=== PATIENT | male | born 1945 | race Caucasian/White ===

== ENCOUNTER 2018-10-07 13:04 | Inpatient (IN) | payer OTHER, MEDICARE ==
[2018-10-07] MEDS ORDERED: Digoxin 0.125 MG TAB ONE (13:25)
[2018-10-07] MEDS ORDERED: Digoxin 0.5 MG/2 ML AMP SLOW IVP SCH (13:45)
[2018-10-07 14:38] LABS: CKMB 9.8 ng/mL (0-6.6)
[2018-10-07] MEDS ORDERED: Digoxin 0.5 MG/2 ML AMP ONE (15:01)
[2018-10-07] MEDS ORDERED: Acetaminophen 325 MG TAB PO PRN (15:57)
[2018-10-07] MEDS ORDERED: Ondansetron ODT 4 MG TAB PO PRN (15:57)
[2018-10-07] MEDS ORDERED: Nitroglycerin 0.4 MG TAB (25 Tab Bottle) SL PRN (15:57)
[2018-10-07] MEDS ORDERED: Zolpidem Tartrate 5 MG TAB PO PRN (15:57)
[2018-10-07] MEDS ORDERED: Aspirin Chewable 81 MG TAB PO SCH (16:00)
--- NOTE | 2018-10-07 16:34 | CON ---
DATE OF CONSULTATION: REASON FOR CONSULTATION: Atrial flutter/fibrillation and elevated troponin. [employer]IMARY [employer] TEACHER: Dr. Armen Corona. HISTORY OF PRESENT ILLNESS: Mr. Shell is a very pleasant 73-year-old gentleman, who recently presented with tachycardia. He states his heart rate was in the 130s to 140s. He does have chronic angina and has been treated medically. His also states he has moderate to severe aortic stenosis. He has a history of CAD, status post bypass surgery with small vessel disease, not amenable to percutaneous intervention per Dr. Armen Corona, which I have confirmed after reviewing his angio in 2017. No significant episodes of shortness of breath, fever, chills, or associated symptoms. PAST MEDICAL HISTORY: Cardiac arrest, status post bypass surgery, COPD, acid reflux, moderate to severe aortic stenosis, hyperlipidemia, hypertension, colonic polyp, carpal tunnel surgery, and inguinal hernia repair. ALLERGIES: PERIACTIN. HOME MEDICATIONS: Include: 1. Prilosec. 2. DuoNeb. 3. Lotrel. 4. Imdur. 5. Carvedilol. 6. Lovastatin. 7. Aspirin. 8. Albuterol. SOCIAL HISTORY: No current tobacco or alcohol use. REVIEW OF SYSTEMS: A 10-point review of systems is reviewed and as above otherwise negative. PHYSICAL EXAMINATION: GENERAL: Patient is a pleasant male, who is in no acute distress. The patient appears their stated age. VITAL SIGNS: Blood pressure 99/70, pulse 130s to 140s, respirations 20. NEUROLOGIC: The patient is alert and oriented x3 with no focal neurologic deficits. HEENT: Sclerae without icterus. Mouth has moist mucous membranes with normal pallor. NECK: No JVD. Carotid upstroke brisk. No bruits bilaterally. LUNGS: Clear to auscultation with unlabored respirations. BACK: No scoliosis or kyphosis. CARDIAC: Irregularly irregular. ABDOMEN: Soft, nontender, nondistended. No peritoneal signs present. No hepatosplenomegaly. No abnormal striae. EXTREMITIES: 2+ femoral and 2+ dorsalis pedis pulses. No cyanosis, clubbing, or edema. SKIN: No gross abnormalities. PERTINENT LABORATORY DATA: Hemoglobin 13.8, hematocrit 41.6. CK-MB of 9.8. Troponin 3.1. BNP of 347. IMPRESSION: 1. Atrial flutter/fibrillation. 2. Coronary artery disease. 3. Status post bypass surgery. 4. Moderate to severe aortic stenosis. 5. Elevated troponin. RECOMMENDATIONS: Mr. Shell has no current symptoms suggesting unstable angina. Based on his previous films which I have reviewed, he likely has a demand ischemia given small-vessel disease present. His grafts appear large and ectatic and bypassed a small vessel. The goal currently is to control his rate. He has been given IV digoxin. We will give IV fluids in addition to repeating his echo. He was given one dose of Lovenox and placed on IV amiodarone. We will consult with EP in a.m. Job ID: [id number]
[2018-10-07 16:55] VITALS: BMI 33.5
[2018-10-07 17:25] LABS: Critical Call Chem Troponin I RESULT DECREASING; Troponin I 2.588 ng/mL (< 0.028)
--- NOTE | 2018-10-07 17:25 | HP ---
PRIMARY CARE PHYSICIAN: Dr. Cisneros. HISTORY OF PRESENT ILLNESS: The patient lives at [place]. The patient went to the emergency room with palpitations. He has noticed that his heart felt fast. He had checked his pulse, found it to be about 150. He had some mild shortness of breath with exertion. He had a sweat last night with present illness. No nausea and definitely no chest pain whatsoever. No pressure, no tightness, no nothing. PAST MEDICAL HISTORY: Coronary artery disease with coronary artery bypass graft x4 in 1991, heart catheterization in 2000, heart catheterization in December of 2016 , has a history of COPD. 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 Gastroesophageal reflux disease, hiatal hernia. Echocardiogram had recently shown an EF of 38%. History of colon polyps. Former smoker. PAST SURGICAL HISTORY: In addition to his coronary artery bypass graft, he has had a colonoscopy and EGD in the last 5 years, carpal tunnel surgery, inguinal hernia surgery, laryngeal polyps surgery in the 1980s, lumbar laminectomy x2 in the past. ALLERGIES: HE IS ALLERGIC TO PERIACTIN. CURRENT HOME MEDICINES: 1. Imdur 30 mg a day. 2. Coreg 6.25 mg twice a day. 3. Singulair 10 mg a day. 4. Lovastatin 40 mg a day. 5. Aspirin 81 mg a day. 6. Losartan 25 mg a day. 7. Lasix 20 mg p.r.n. 8. Protonix 40 mg a day. 9. Some p.r.n. medicines. 10. Stiolto inhaler, started in August 2017. 11. DuoNebs 3 mL q.6 hours p.r.n. 12. Budesonide 0.5 mg nebulizer b.i.d. SOCIAL HISTORY: Lives at home with his spouse. Full code status. Seventy-five pack-year smoking history. No alcohol or drug use. FAMILY HISTORY: Brother and father with lung cancer. One brother with prostate cancer. Sister with breast cancer metastases. REVIEW OF SYSTEMS: HEAD: No headaches, dizziness, or fainting EYES: No double vision, blurred vision, or flashing lights. EAR, NOSE, AND THROAT: No ear pain or drainage. No nasal bleeding. He has been a little hoarse lately. CARDIAC: See present illness. RESPIRATIONS: He has crackles, some occasional wheezing. GI: No nausea, vomiting, abdominal pain, or constipation. : No hematuria or dysuria. MUSCULOSKELETAL: No pain or swelling. NEUROLOGICAL: No strokes, seizures, or focal weakness. PSYCHIATRIC: No anxiety or depression. SKIN: No bruising, bleeding or rash. HEME AND LYMPH: No tender or swollen lymph nodes in axilla, inguinal, cervical area. PHYSICAL EXAMINATION: GENERAL: The patient is alert, pleasant, cooperative gentleman, in no acute distress. VITAL SIGNS: His pulse was 150 with occasional missed beats. Respirations were 16 to 18, blood pressure 100/60, O2 saturation 95%, afebrile. HEAD EYES, EARS, NOSE, AND THROAT: Pupils are equal, round, and reactive to light. Extraocular movements intact. Sclerae are white. Tympanic membranes clear. Nose is clear. Oral mucous membranes are wet. Dental hygiene is good. NECK: No jugular venous distention, adenopathy, or thyromegaly. CHEST: Clear to auscultation and percussion. HEART: Basically regular rhythm with some irregularities. Tachycardic. No murmurs or gallops noted. ABDOMEN: Soft. Bowel sounds are normal. No hepatosplenomegaly. No mass. No rebound. No bruits. EXTREMITIES: Reveal no cyanosis, clubbing, or edema. PULSES: Carotid, radial, femoral, and dorsalis pedis pulses intact. SKIN: Warm and dry without bruises or rash. HEME/LYMPH: No tender or swollen lymph nodes in the axilla, inguinal, or cervical area. NEUROLOGICAL: Cranial nerves 2 through 12 are intact. Deep tendon reflexes symmetric. LABORATORY DATA: The only lab available here is CK-MB of 9.8, troponin 3.197. EKG reveals atrial flutter with variable block, running as fast as 150 for prolonged periods of times. ADMITTING DIAGNOSES: Atrial flutter with 2:1 block, [id number] myocardial infarction versus demand ischemia, coronary artery disease, chronic obstructive pulmonary disease, dyslipidemia, and cardiomyopathy. PLAN: I have discussed this case with Dr. Hancock. Aspirin has been given. Lovenox has been started 1 mg/kg subcu q.12 hours. Amiodarone IV infusion will be started. Serial enzymes will be done. Home medicines will be continued as far his pulmonary problem, etc. Because of the elevation of his enzymes and rate, he will be moved to the [facility]. Job ID: [id number] ERIKA
[2018-10-07] MEDS: Lovastatin 20 MG TAB PO SCH (18:00)
[2018-10-07] MEDS: Amiodarone 450 MG in Dextrose 5% in Water 250 ML IVPB SCH (18:01)
[2018-10-07 21:08] LABS: Troponin I 2.945 ng/mL (< 0.028)
[2018-10-07] MEDS: Enoxaparin Sodium 120 MG/0.8 ML SYRINGE SC SCH (21:11)
[2018-10-07] MEDS: Carvedilol 6.25 MG TAB PO SCH (21:11)
[2018-10-07] MEDS: Montelukast Sodium 10 mg Tablet PO SCH (21:12)
[2018-10-07] MEDS: Nitroglycerin 2% Ointment 1 INCH/1 GM Packet TOP SCH (21:12)
[2018-10-07] MEDS: Famotidine/PF 20 mg/2ml Vial SLOW IVP SCH (21:12)
[2018-10-08] MEDS: Amiodarone 450 MG in Dextrose 5% in Water 250 ML IVPB SCH ×2 (01:37→18:37)
[2018-10-08] MEDS: Nitroglycerin 2% Ointment 1 INCH/1 GM Packet TOP SCH ×4 (02:00→22:51)
[2018-10-08 05:05] LABS: #Eosinphils 0.1 thou/uL (0.0-0.7); #Neutrophils 8.8 thou/uL (1.40-6.50); %Basophils 0.1 % (0.0-1.0); %Eosinophils 0.7 % (0.0-10.0); %Lymphocytes 16.5 % (21.0-51.0); %Monocytes 8.6 % (0.0-10.0); Hemoglobin 13.3 g/dL (14.0-18.0); Mean Corpuscular HGB CONC 32.8 g/dL (32.0-36.0); Mean Corpuscular Hemoglobin 30.7 pg (27.0-31.0); Mean Corpuscular Volume 93.6 fL (78.0-98.0); Mean Platelet Volume 7.3 fL (7.4-10.4); Platelet Count 250 thou/uL (130-400); RBC Distribution Width 13.6 % (11.5-14.5); Red Blood Cell (RBC) Count 4.34 mill/uL (4.70-6.10); White Blood Cell (WBC) Count 11.9 thou/uL (4.8-10.8)
[2018-10-08 05:30] LABS: Anion Gap 14 mmol/L (10-20); BUN (Urea Nitrogen) 20 mg/dL (8.4-25.7); Calc. Creatinine Clearance 115 mL/min (70-130); Carbon Dioxide 23 mmol/L (23-31); Cardiac Risk 4.2 (Less than 4.5); Chloride 103 mmol/L (98-107); Cholesterol 122 mg/dl (< 200 Desired); Estimated GFR-MDRD 84; Glucose 126 mg/dL (83-110); HDL Cholesterol 29 mg/dL (>60 Neg Risk); LDL Cholesterol, Calculated 66 mg/dL; Potassium 3.6 mmol/L (3.5-5.1); Sodium 136 mmol/L (136-145); Triglycerides 135 mg/dL (Less than 150)
[2018-10-08] MEDS: Carvedilol 6.25 MG TAB PO SCH ×2 (07:46→19:57)
[2018-10-08] MEDS: Losartan 25 MG TAB PO SCH (07:46)
[2018-10-08] MEDS: Aspirin 81 mg Enteric Coated Tablet PO SCH (07:47)
[2018-10-08] MEDS: Polyethylene Glycol 3350 17 GM Packet PO SCH (07:48)
[2018-10-08] MEDS: Enoxaparin Sodium 120 MG/0.8 ML SYRINGE SC SCH ×2 (07:48→19:56)
[2018-10-08] MEDS: Famotidine/PF 20 mg/2ml Vial SLOW IVP SCH (07:49)
[2018-10-08] MEDS ORDERED: Non-Formulary Item 1 EACH (Umeclidinium Brm/Vilanterol Tr [Anoro Ellipta] 1 INH) IH SCH (09:00)
--- NOTE | 2018-10-08 17:10 | CON ---
DATE OF CONSULTATION: HISTORY OF PRESENT ILLNESS: Mr. Shell is a very pleasant gentleman, who has been followed by Dr. Carty. He presented with atrial flutter. His says he had atrial flutter at home with a heart rate of 150 for 2 days before he came to the hospital. He had no chest pain with this. He subsequently now has a heart rate in the 70s. He says he is feeling better. PAST MEDICAL HISTORY: Remarkable for; 1. Coronary artery bypass grafting in 1991. 2. History of a heart catheterization in 2000 and 2016. 3. History of COPD. 4. History of reflux disease. 5. History of depressed ejection fraction. 6. History of colon polyps. 7. History of carpal tunnel surgery. 8. History of hernia surgery. 9. History of laryngeal polyps in the 80s. 10. History of lumbar spine surgeries in the past. 11. With an abnormal chest x-ray, this has been followed by Dr. Carty. There are no notes in the current computer to delineate this. FAMILY HISTORY: Negative for lung disease in early age. SOCIAL HISTORY: He is not smoking. He is not a daily drinker. ALLERGIES: HE REPORTS ALLERGIES TO CYPROHEPTADINE. PHYSICAL EXAMINATION: VITAL SIGNS: He still appears to be in atrial flutter reviewing his monitor. Heart rate 70s, blood pressure 120/60, and respiratory rates in the low 20s to high teens. HEENT: Pupils are equal. Sclerae are anicteric. NECK: Supple. No lymphadenopathy. LUNGS: Remarkable for diffuse very mild wheezes. HEART: Regular rhythm. ABDOMEN: Soft and nontender. EXTREMITIES: Without clubbing, cyanosis, or edema. NEURO: Grossly nonfocal. LABORATORY DATA: White count 11.9, hemoglobin 13.3, and platelets 250. Electrolytes are normal. Glucose 126. Troponin peaked at 3.1. IMPRESSION AND PLAN: 1. Atrial flutter, now with rate control. We are awaiting Cardiology input. 2. History of underlying chronic obstructive pulmonary disease, clinically stable. His says he always wheeze a little bit. 3. History of an abnormal chest x-ray in the past. One of the notes suggest that he has a history of a lung mass. I wonder if this is not aspergilloma and we will have to defer to office notes and Dr. Carty when he returns in the morning. TIME SPENT: This is a 50-minute consult, 50% of the time was spent on the unit coordinating care. Job ID: [id number]
[2018-10-08] MEDS ORDERED: Senokot 8.6 MG TAB PO PRN (17:52)
[2018-10-08] MEDS ORDERED: Furosemide 20 MG TAB PO PRN (17:55)
[2018-10-08] MEDS: Lovastatin 20 MG TAB PO SCH (18:07)
[2018-10-08] MEDS: Budesonide 0.5 MG/2 ML NEB INH SCH (18:29)
--- NOTE | 2018-10-08 18:45 | PRG ---
DATE OF SERVICE: 10/08/2018 SUBJECTIVE: The patient has been transferred to telemetry unit. He denies any chest pain or palpitations. He continues to have shortness of breath on [id number] exertion. He is currently on amiodarone drip. No fever or chills reported. REVIEW OF SYSTEMS: As discussed above, all other review of systems were reviewed and were found negative. CURRENT MEDICATIONS: The patient is on amiodarone drip along with carvedilol, nitroglycerin patch 1 mg/kg Lovenox and nebulizer treatment. OBJECTIVE: VITAL SIGNS: Temperature of 96.3, respirations of 16, pulse rate of 70, blood pressure of 134/63, O2 saturation of 98% on room air. GENERAL: A 73-year-old male, in no apparent distress. HEENT: Head; atraumatic, normocephalic. Sclerae anicteric. Moist mucous membrane. NECK: Supple. No JVD. No carotid bruit. LUNGS: Showed scattered rhonchi without significant wheezing. Lungs are symmetrical. Minimal accessory muscle use. HEART: S1 and S2 present. Irregularly irregular. No rubs or gallops appreciated. Healed midline scar from previous CABG. ABDOMEN: Soft, nontender. Bowel sounds present. EXTREMITIES: No edema or calf tenderness. NEUROLOGIC: Grossly nonfocal. Moves all 4 extremities. PSYCHIATRY: Normal affect. Alert, awake, and oriented x3. LABORATORY FINDINGS: WBC 11.9, hemoglobin 13.3, hematocrit 40.6, platelets 250. Troponin 2.9, BUN 20, creatinine 0.88, sodium 136, potassium 3.6. Telemetry monitoring by my review showed atrial flutter. IMPRESSION: 1. Atrial flutter/fibrillation with rapid ventricular response on amiodarone drip. 2. Elevated troponin, probably type 2 myocardial infarction/demand ischemia. 3. Coronary artery disease, status post coronary artery bypass graft. The patient had a last cardiac catheterization in December 2016. 4. Chronic obstructive pulmonary disease. 5. Dyslipidemia. 6. Chronic anemia. 7. Gastroesophageal reflux disease. 8. Chronic systolic and diastolic heart failure, compensated. 9. Obesity with a body mass index of 33.5. 10. Chronic kidney disease, stage 2. PLAN: Amiodarone drip will be continued. Electrophysiology has been consulted. The patient will be kept n.p.o. past midnight. We will continue Lovenox 1 mg per kg. The patient understands the risk associated with anticoagulation. We will recheck labs in a.m. Continue carvedilol, losartan, nebulizer treatment, Singulair. Restart Pulmicort. His heart rate is controlled on amiodarone drip. Job ID: [id number]
--- NOTE | 2018-10-08 18:50 | PDOC.CTH ---
Cardiology Progress Note - Subjective No compalints today. HR much better controlled on Amiodaorne IV - Objective Vital Signs Temp Pulse Resp BP BP Pulse Ox 10/08/18 18:29 70 20 93 L 10/08/18 16:05 98 10/08/18 16:00 96.3 F L 70 16 134/63 98 10/08/18 15:06 71 21 H 100 10/08/18 11:19 99 10/08/18 11:16 72 18 99 10/08/18 07:46 104/66 10/08/18 07:25 100 Weight 247 lb 5.738 oz 10/07/18 10/08/18 10/09/18 06:59 06:59 06:59 Intake Total 826 755.7 Output Total 510 1000 Balance 316 -244.3 - Physical Examination General/Neuro: NAD Neck: carotid US brisk, no JVD present Lungs: CTA, unlabored respirations Heart: other: (irr) Abdomen: NT/ND, soft Extremities: + femoral B - Telemetry Telemetry Rhythm: aflutter - Labs Result Diagrams: 10/08/18 04:46 10/08/18 04:46 Troponin/CKMB CK-MB (CK-2) 9.8 ng/mL (0-6.6) H* 10/07/18 13:41 Troponin I 2.945 ng/mL (< 0.028) H* 10/07/18 20:29 - Assessment/Plan Eelvated troponin Atrial flutter Severe CAD S/p CABG Difficult situation given recent increase in troponin although likely secondary to demand ischmeia given diffuse small vessel disease oin angio in 2017 and no symptoms of angina Continue rate control NPO Consult EP on recommendations Norma consider CV in the short term
[2018-10-08] MEDS: Montelukast Sodium 10 mg Tablet PO SCH (19:57)
[2018-10-08] MEDS: guaiFENesin ER 600 MG TAB PO SCH (19:57)
[2018-10-09] MEDS: Nitroglycerin 2% Ointment 1 INCH/1 GM Packet TOP SCH ×3 (05:24→21:18)
[2018-10-09 05:32] LABS: #Eosinphils 0.2 thou/uL (0.0-0.7); #Lymphocytes 1.7 thou/uL (1.20-3.40); #Monocytes 0.9 thou/uL (0.11-0.59); #Neutrophils 9.3 thou/uL (1.40-6.50); %Basophils 0.4 % (0.0-1.0); %Eosinophils 1.4 % (0.0-10.0); %Monocytes 7.4 % (0.0-10.0); %Neutrophils 76.9 % (42.0-75.0); Hemoglobin 12.9 g/dL (14.0-18.0); Mean Corpuscular HGB CONC 32.3 g/dL (32.0-36.0); Mean Corpuscular Volume 92.9 fL (78.0-98.0); Mean Platelet Volume 7.7 fL (7.4-10.4); Platelet Count 244 thou/uL (130-400); RBC Distribution Width 13.6 % (11.5-14.5); Red Blood Cell (RBC) Count 4.29 mill/uL (4.70-6.10)
[2018-10-09 05:55] LABS: Anion Gap 12 mmol/L (10-20); BUN (Urea Nitrogen) 19 mg/dL (8.4-25.7); Calc. Creatinine Clearance 118 mL/min (70-130); Calcium 9.2 mg/dL (7.8-10.44); Carbon Dioxide 25 mmol/L (23-31); Chloride 102 mmol/L (98-107); Estimated GFR-MDRD 87; Glucose 122 mg/dL (83-110); Magnesium 2.1 mg/dL (1.6-2.6); Sodium 135 mmol/L (136-145)
[2018-10-09] MEDS: Budesonide 0.5 MG/2 ML NEB INH SCH ×2 (06:34→18:15)
[2018-10-09] MEDS ORDERED: Sodium Chloride 0.9% 10 ML ONE (08:34)
[2018-10-09] MEDS: Amiodarone 450 MG in Dextrose 5% in Water 250 ML IVPB SCH (09:17)
[2018-10-09] MEDS: Losartan 25 MG TAB PO SCH (09:18)
[2018-10-09] MEDS: Carvedilol 6.25 MG TAB PO SCH ×2 (09:18→19:57)
[2018-10-09] MEDS: Multivit, Therapeutic 1 TAB PO SCH (09:18)
[2018-10-09] MEDS: Aspirin 81 mg Enteric Coated Tablet PO SCH (09:19)
[2018-10-09] MEDS: guaiFENesin ER 600 MG TAB PO SCH ×2 (09:19→19:57)
--- NOTE | 2018-10-09 11:24 | PQF ---
CLINICAL DOCUMENTATION IMPROVEMENT CLARIFICATION FORM: ICD-10 Updated PLEASE DO AN ADDENDUM TO THE PROGRESS NOTE WITH ANY DOCUMENTATION UPDATES OR ADDITIONS AND CARRY THROUGH TO DC SUMMARY. THANK YOU. DATE: 10/09/18 ATTN: DR. ESCOBAR Please exercise your independent, professional judgment in responding to the clarification form. Clinical indicators are provided on the bottom of this form for your review Please check appropriate box(s): Conflicting documentation was noted in the Medical Record, please clarify if patient is being treated/monitored for: [ ] NSTEMI [ ] VT TYPE 2 [ ] DEMAND ISCHEMIA [ ] Other diagnosis [ ] Unable to determine In addition, please specify: Present on Admission (POA): [ ] Yes [ ] No [ ] Unable to determine For continuity of documentation, please document condition throughout progress notes and discharge summary. Thank You. CLINICAL INDICATORS - SIGNS / SYMPTOMS/ LABS ER NOTE: "NSTEMI" CONSULTATION NOTE 10/07: "ELEVATED TROPONIN" "NO CURRENT SYMPTOMS SUGGESTING UNSTABLE ANGINA. BASED ON HIS PREVIOUS FILMS WHICH I HAVE REVIEWED, HE LIKELY HAS A DEMAND ISCHEMIA GIVEN SMALL-VESSEL DISEASE PRESENT." H&P: [id number] MYOCARDIAL INFARCTION VERSUS DEMAND ISCHEMIA RISKS: H/O CHF H/O CAD HTN AFLUTTER TREATMENT: TELEMETRY MONITORING LOVENOX (10/07-PRESENT) ECOTRIN (10/08-PRESENT) IMDUR ER(10/08-PRESENT) CARDIOLOGY CONSULT (This form is maintained as a part of the permanent medical record) 2014 [employer]. All Rights Reserved [email or web address] Office: [phone] [facility]
--- NOTE | 2018-10-09 13:03 | PRG ---
DATE OF SERVICE: 10/09/2018 SUBJECTIVE: Mr. Shell is currently in the hospital for treatment of atrial flutter. His breathing seems to be episodically bad at times. I am wondering if this is not due to the atrial flutter. He tells me that his PA through his primary care try to switch his inhaler to trilogy and he does not feel trilogy works as well. OBJECTIVE: VITAL SIGNS: His temperature is 97.8, pulse 68, blood pressure 107/56, and O2 saturation 96%. He is currently on amiodarone drip. HEENT: Unremarkable. NECK: No JVD. CARDIAC: S1 and S2 sounds. Regular. LUNGS: A few crackles in the bases. ABDOMEN: Soft and nontender. EXTREMITIES: No edema. LABORATORY DATA: White blood cell count 12, hematocrit 39.8, and platelet count 244. Sodium 135, potassium 4, chloride 102, CO2 of 25, BUN 19, creatinine 0.8, and glucose 122. ASSESSMENT: 1. Atrial flutter. 2. Chronic obstructive pulmonary disease. PLAN: Continue nebulization treatments and budesonide. Continue above. We will follow. Job ID: [id number]
[2018-10-09] MEDS ORDERED: PROPOFOL 200 MG/20 ML VIAL ONE (13:47)
[2018-10-09] MEDS ORDERED: Heparin 10,000 UNITS/1 ML VIAL ONE (14:25)
[2018-10-09] MEDS: Polyethylene Glycol 3350 17 GM Packet PO SCH (14:41)
[2018-10-09] MEDS: Enoxaparin Sodium 120 MG/0.8 ML SYRINGE SC SCH (14:42)
[2018-10-09] MEDS ORDERED: PROPOFOL 60 ML ONE (15:10)
[2018-10-09] MEDS ORDERED: Midazolam HCl 2 mg/2 ml Vial ONE (15:45)
[2018-10-09] MEDS ORDERED: DOPamine 400 MG/D5W 250 ML 250 ML ONE (16:12)
[2018-10-09] MEDS: Lovastatin 20 MG TAB PO SCH (18:22)
--- NOTE | 2018-10-09 18:40 | PDOC.CTH ---
Cardiology Progress Note - Subjective He is doing well. No chest pain. - Objective Vital Signs Temp Pulse Pulse Pulse Resp BP BP 10/09/18 18:16 72 16 10/09/18 18:15 72 16 10/09/18 17:30 97.6 F 77 18 10/09/18 14:27 64 16 10/09/18 12:00 68 18 10/09/18 11:13 68 88 107/56 L 10/09/18 10:23 68 16 10/09/18 09:18 146/65 H 10/09/18 08:00 10/09/18 07:51 97.8 F 68 18 10/09/18 06:37 74 18 BP BP BP Pulse Ox Pulse Ox Pulse Ox 10/09/18 18:16 95 10/09/18 18:15 95 10/09/18 17:30 144/77 H 96 10/09/18 14:27 93 L 10/09/18 12:00 112/56 L 10/09/18 11:13 149/68 H 94 L 96 10/09/18 10:23 94 L 10/09/18 09:18 10/09/18 08:00 94 L 10/09/18 07:51 118/57 L 94 L 10/09/18 06:37 95 Weight 247 lb 5.738 oz 10/08/18 10/09/18 10/10/18 06:59 06:59 06:59 Intake Total 826 805.7 243.6 Output Total 510 1650 525 Balance 316 -844.3 -281.4 - Physical Examination General/Neuro: alert & oriented x3, NAD Neck: no JVD present Lungs: CTA, unlabored respirations Heart: RRR Abdomen: NT/ND Extremities: other: (no edema) - Telemetry Telemetry Rhythm: NSR - Labs Result Diagrams: 10/09/18 04:39 10/09/18 04:39 Troponin/CKMB CK-MB (CK-2) 9.8 ng/mL (0-6.6) H* 10/07/18 13:41 Troponin I 2.945 ng/mL (< 0.028) H* 10/07/18 20:29 - Assessment/Plan 1. Type 2 NC, demand ischemia 2. Typical atrial flutter. 3. CAD s/p CABG. PLAN: - EP for flutter ablation. - Will need anticoagulation on discharge.
[2018-10-09] MEDS: Montelukast Sodium 10 mg Tablet PO SCH (19:57)
[2018-10-09] MEDS: Apixaban 5 MG TAB PO SCH (19:57)
--- NOTE | 2018-10-09 22:06 | PDOC.PN ---
- Subjective Encounter Start Date: 10/09/18 Encounter Start Time: 14:30 Patient seen and examined for A flutter. No CP/SOB. NPO. No new complaints. No overnight events - Objective Resuscitation Status - Order Detail: 10/07/18 15:49 Resuscitation Status Routine Resuscitation Status: FULL: Full Resuscitation MAR Reviewed: Yes Vital Signs & Weight: Vital Signs (12 hours) Temp Pulse Pulse Pulse Resp BP BP 10/09/18 20:00 97.7 F 79 18 10/09/18 19:57 128/61 10/09/18 18:16 72 16 10/09/18 18:15 72 16 10/09/18 17:30 97.6 F 77 18 10/09/18 14:27 64 16 10/09/18 12:00 68 18 10/09/18 11:13 68 88 107/56 L 10/09/18 10:23 68 16 BP BP BP Pulse Ox Pulse Ox Pulse Ox 10/09/18 20:00 128/61 93 L 10/09/18 19:57 10/09/18 18:16 95 10/09/18 18:15 95 10/09/18 17:30 144/77 H 96 10/09/18 14:27 93 L 10/09/18 12:00 112/56 L 10/09/18 11:13 149/68 H 94 L 96 10/09/18 10:23 94 L Weight Weight 247 lb 5.738 oz Most Recent Monitor Data Heart Rate from ECG 72 NIBP 108/68 NIBP BP-Mean 81 Respiration from ECG 30 SpO2 99 I&O: 10/08/18 10/09/18 10/10/18 06:59 06:59 06:59 Intake Total 826 805.7 243.6 Output Total 510 1650 525 Balance 316 -844.3 -281.4 Result Diagrams: 10/09/18 04:39 10/09/18 04:39 EKG Reviewed by me: Yes (Tele A flutter) Phys Exam - Physical Examination Constitutional: NAD Respiratory: no wheezing, no rhonchi Cardiovascular: RRR, no rub Gastrointestinal: soft, non-tender, positive bowel sounds Musculoskeletal: no edema Dx/Plan - Plan DVT proph w/lovenox, DVT proph w/SCDs IMPRESSION: 1. Atrial flutter/fibrillation with rapid ventricular response on Amiodarone drip. 2. Elevated troponin due to type 2 myocardial infarction/demand ischemia. 3. Coronary artery disease, status post coronary artery bypass graft. 4. Chronic obstructive pulmonary disease. 5. Dyslipidemia. 6. Chronic anemia. 7. Gastroesophageal reflux disease. 8. Chronic systolic and diastolic heart failure, compensated. 9. Obesity with a body mass index of 33.5. 10. Chronic kidney disease, stage 2. PLAN: HILARIO CV today Cont anticoag On Amiodarone drip Cont current meds as below Review of Systems - Review of Systems Respiratory: negative: Cough, Dry, Shortness of Breath, Hemoptysis, SOB with Excertion, Pleuritic Pain, Sputum, Wheezing Cardiovascular: negative: chest pain, palpitations, orthopnea, paroxysmal nocturnal dyspnea, edema, light headedness, other Gastrointestinal: negative: Nausea, Vomiting, Abdominal Pain, Diarrhea, Constipation, Melena, Hematochezia, Other - Medications/Allergies Allergies/Adverse Reactions: Allergies Allergy/AdvReac Type Severity Reaction Status Date / Time cyproheptadine Allergy hallucinati Verified 10/07/18 17:12 [From Periactin] ons Medications: Current Medications Acetaminophen (Tylenol) 650 mg PO Q4H PRN PRN Reason: Headache/Fever/Mild Pain (1-3) Albuterol/Ipratropium (Duoneb) 3 ml NEB QID-RT [facility] Last Admin: 10/09/18 18:16 Dose: 3 ml Albuterol/Ipratropium (Duoneb) 3 ml NEB [id number] PRN PRN Reason: SOB &/or Wheezing Apixaban (Eliquis) 5 mg PO BID [facility] Last Admin: 10/09/18 19:57 Dose: 5 mg Aspirin (Ecotrin) 81 mg PO DAILY [facility] Last Admin: 10/09/18 09:19 Dose: 81 mg Budesonide (Pulmicort Neb Solution) 0.5 mg INH BID-RT [facility] Last Admin: 10/09/18 18:15 Dose: 0.5 mg Carvedilol (Coreg) 6.25 mg PO BID [facility] Last Admin: 10/09/18 19:57 Dose: 6.25 mg Furosemide (Lasix) 20 mg PO DAILY PRN PRN Reason: fluid overload Guaifenesin (Mucinex) 600 mg PO Q12HR [facility] Last Admin: 10/09/18 19:57 Dose: 600 mg Isosorbide Mononitrate (Imdur Er) 30 mg PO DAILY [facility] Last Admin: 10/09/18 09:18 Dose: 30 mg Losartan Potassium (Cozaar) 25 mg PO DAILY [facility] Last Admin: 10/09/18 09:18 Dose: 25 mg Montelukast Sodium (Singulair) 10 mg PO HS [facility] Last Admin: 10/09/18 19:57 Dose: 10 mg Multivitamins (Theragran) 1 tab PO DAILY [facility] Last Admin: 10/09/18 09:18 Dose: 1 tab Nitroglycerin (Nitrostat) 0.4 mg SL Q5MIN PRN PRN Reason: Chest Pain Ondansetron HCl (Zofran Odt) 4 mg PO Q6H PRN PRN Reason: Nausea/Vomiting Pantoprazole Sodium (Protonix) 40 mg PO DAILY [facility] Last Admin: 10/09/18 09:19 Dose: 40 mg Polyethylene Glycol (Miralax) 17 gm PO DAILY [facility] Last Admin: 10/09/18 14:41 Dose: Not Given Senna (Senokot) 2 tab PO HSPRN PRN PRN Reason: Constipation Zolpidem Tartrate (Ambien) 5 mg PO HSPRN PRN PRN Reason: Insomnia
--- NOTE | 2018-10-09 23:00 | OP ---
DATE OF PROCEDURE: 10/09/2018 PROCEDURE PERFORMED: Electrophysiology study and radiofrequency ablation. ADDITIONAL REFERRING PHYSICIAN: Dr. Hancock. REASON FOR PROCEDURE: Mr. Shell is a 73-year-old male with prior history of coronary artery disease, bypass surgery, stents, history of moderate to severe aortic stenosis, who now presented with progressive dyspnea, typically appearing atrial flutter with rapid ventricular rates on EKGs and telemetry. He is here after a HILARIO, which demonstrated no intracardiac clots. DESCRIPTION OF PROCEDURE: The patient received propofol by Anesthesia specialist. The right femoral venous area was prepped, draped, and anesthetized using subcutaneous lidocaine and with ultrasound guidance, the right femoral vein was cannulated and two 8-[place] Helenian short sheaths were introduced. Through this, a ThermoCool SFST bidirectional ablation catheter was advanced to the right atrium and 3D map of the right atrium, coronary sinus, His bundle area was obtained. Pace mapping was also performed of the baseline atrial flutter with overdrive pacing at the cavotricuspid isthmus demonstrated entrainment and the post-pacing interval equal to the tachycardia cycle length of about 240 milliseconds. Also, a decapolar catheter was advanced to the right atrium, right ventricle and eventually to the CS position. Pacing mapping and recording were performed in each location. At this point, the cavotricuspid isthmus ablation was performed, delivering total of 6 ablation lesions at total duration of 4 minutes and 8 seconds at 40 mosquera. During the ablation, the atrial flutter terminated. Subsequently, a proximal CS pacing was delivered and further ablation lesions were placed to increase the transisthmus time for baseline 50 milliseconds up to 170 milliseconds. The unidirectional block was demonstrated by achieving longest transisthmus time adjacent to the ablation line. Following that, baseline EP study was performed. Following findings were noted. QRS duration was 99 milliseconds, QT 483 milliseconds. The HV was 41 milliseconds. The AV Wenckebach cycle length was 480 milliseconds. Retrograde VA conduction was 320 milliseconds. AV asaf ERP was 600/360 milliseconds. Concentric retrograde VA conduction was seen and no definite dual AV asaf physiology was present. Burst atrial pacing did not induce any atrial arrhythmias. At this point, dopamine was administered and the baseline measurements were re-measured and any reconnections re-ablated. At the end of the case, cinegraphy he did not reveal significant change in the cardiac silhouette. The patient tolerated the procedure well. No complications noted. PLAN: 1. At this point, I will stop amiodarone. Monitor for any recurrent atrial arrhythmias. Also consider starting an oral anticoagulant agents like Xarelto versus Eliquis. 2. Routine outpatient followup. Thank you again for allowing me to participate in the care of this patient. Job ID: [id number]
[2018-10-10] MEDS: Budesonide 0.5 MG/2 ML NEB INH SCH (06:57)
[2018-10-10 07:21] VITALS: TEMP 98.5
[2018-10-10] MEDS: Apixaban 5 MG TAB PO SCH (08:37)
[2018-10-10] MEDS: guaiFENesin ER 600 MG TAB PO SCH (08:37)
[2018-10-10] MEDS: Multivit, Therapeutic 1 TAB PO SCH (08:37)
[2018-10-10] MEDS: Losartan 25 MG TAB PO SCH (08:38)
[2018-10-10] MEDS: Carvedilol 6.25 MG TAB PO SCH (08:38)
[2018-10-10] MEDS: Aspirin 81 mg Enteric Coated Tablet PO SCH (08:39)
[2018-10-10] MEDS: Polyethylene Glycol 3350 17 GM Packet PO SCH (08:39)
--- NOTE | 2018-10-10 09:12 | PDOC.CTH ---
Cardiology Progress Note - Subjective EP progress note: 10/10/18 Seen as followup after CTI ablation on 10/09. No cardiac concerns overnight. right groin site stable. +Shortness of breath d/t COPD - Objective Vital Signs Temp Pulse Resp BP BP Pulse Ox 10/10/18 07:15 98.5 F 75 18 133/63 93 L 10/10/18 06:58 93 L 10/10/18 06:55 76 16 93 L 10/10/18 03:20 97.9 F 74 14 99/56 L 93 L 10/09/18 23:11 78 115/57 L 94 L Weight 247 lb 5.738 oz 10/09/18 10/10/18 10/11/18 06:59 06:59 06:59 Intake Total 805.7 483.6 Output Total 1650 903 Balance -844.3 -419.4 - Physical Examination General/Neuro: alert & oriented x3, NAD Neck: carotid US brisk, no JVD present Lungs: CTA, unlabored respirations Heart: PMI normal, RRR Abdomen: NT/ND, soft - Telemetry Telemetry Rhythm: right groin stable. No hematoma or bleeding - Labs Result Diagrams: 10/09/18 04:39 10/09/18 04:39 Troponin/CKMB CK-MB (CK-2) 9.8 ng/mL (0-6.6) H* 10/07/18 13:41 Troponin I 2.945 ng/mL (< 0.028) H* 10/07/18 20:29 - Assessment/Plan 1. Atrial flutter -s/p CTI ablation. Amiodarone has been stopped. Not inducible for any additional arrhythmias during EP study. 2. COPD 3. Mildly reduced EF 40-45%, possibly tachycardia related 4. CHADS2-VASC: 4 -OAC indicated. On Eliquis Continuee Eliquis. Follow up in 6 weeks in [facility] post ablation. Allowing amiodarone to washout while monitoring for arrhythmia recurrence. May need monitor as OP before OAC can be stopped with recent Amiodarone.
--- NOTE | 2018-10-10 09:28 | ECHO ---
CARDIOLOGY PROCEDURE NOTE: Date: 10/09/18 PROCEDURE: Transesophageal echocardiogram. REASON FOR STUDY: Mr. Shell is a 73-year-old man with history of aortic stenosis, moderate to severe in degree, and sma ll vessel coronary artery disease, who presented with angina-like discomfort and dyspnea. He has pres ented with a newly found atrial flutter of unclear duration. He has not been on anticoagulation prior to admission. He is here for a HILARIO to rule out intracardiac clots. PROCEDURE DETAILS: The patient received propofol by anesthesia specialist. After adequate level of sedation achieved, th e standard transesophageal echocardiogram probe was passed into the esophagus without difficulty. The patient tolerated the procedure well. No complications noted. RESULTS: Left atrium is moderately enlarged, about 5.3 cm in horizontal diameter. Left atrial appendage is wel l visualized and contains no clots. Left atrial appendage velocities are up to 55 cm/sec. This is donny quate. Mitral valve has mild regurgitation. Left ventricular systolic function is preserved. Mild concentric left ventricular hypertrophy is noted. The interatrial septum is free of defect. 4/4 pulmonary veins visualized left atrium. Right side chambers nondilated. No significant tricuspid regurgitation seen. Pulmonic valve had trivial regurgitation. Aortic valve nonregurgitant. Moderate to severe aortic gonzález nosis noted by visual inspection. 2D echo probe velocities were obtained at the end of the case, demonstrating peak pressure gradient o f 35, mean pressure gradient of 19. Calculated valve area was 0.9 cm2. A small, insignificant pericardial effusion was seen at baseline. CONCLUSIONS: 1. No intracardiac clots. 2. Normal left ventricular systolic function. 3. Moderate to severe aortic stenosis. 4. Mild to moderate mitral regurgitation. 5. Moderate left atrial enlargement at 5.7 cm noted. 6. Mild pericardial effusion. PLAN: Proceed with ablation procedure.
--- NOTE | 2018-10-10 10:03 | PRG ---
DATE OF SERVICE: 10/10/2018 SUBJECTIVE: The patient is doing extremely well, has no acute complaints. OBJECTIVE: VITAL SIGNS: Temperature 98.5, pulse 75, respirations 18, O2 saturation 93%, and blood pressure 130/63. HEENT: Unremarkable. NECK: No JVD. LUNGS: Clear to auscultation. CARDIAC: S1 and S2 regular. ABDOMEN: Soft. EXTREMITIES: No edema. ASSESSMENT: 1. Stable chronic obstructive pulmonary disease. 2. Status post ablation of atrial flutter. PLAN: He has been instructed to continue his Stiolto Respimat, DuoNeb, and Singulair at home. He will follow up with me in the office in about 6 months. I do not see any reason to change his medications. I have told him to stop his prednisone. Job ID: [id number]
--- NOTE | 2018-10-10 12:03 | CON ---
DATE OF CONSULTATION: 10/09/2018 REASON FOR CONSULTATION: Atrial flutter. HISTORY OF PRESENT ILLNESS: Mr. Shell is a 73-year-old gentleman, who lives in [place]. He had presented to the emergency room for heart racing and palpitations. Upon arrival, it was found that his heart rate was 150 beats per minute. He had some mild associated shortness of breath and dyspnea with exertion. He also had some transient night sweats. He has a history of coronary artery disease with prior bypass surgery and also known to have small vessel coronary artery disease that is not amenable to PCI per prior reports by Dr. Corona. He also has chronic angina that is medically managed. He also has a history of moderate to severe aortic stenosis. REVIEW OF SYSTEMS: A 12-point review of systems is conducted and is positive for recent heart racing, palpitations, and chronic chest pain. Otherwise, it is negative and as per HPI. PAST MEDICAL HISTORY: 1. Coronary artery disease with prior coronary artery bypass grafting, now with small vessel disease, medically managed. 2. COPD. 3. Gastroesophageal reflux disease. 4. Moderate to severe aortic stenosis. 5. Hyperlipidemia. 6. Hypertension. 7. Colonic polyp. 8. Carpal tunnel surgery. 9. Cardiac arrest. 10. Inguinal hernia repair. ALLERGIES: INCLUDE CYPROHEPTADINE. SOCIAL HISTORY: Lives at home with his spouse. He has 75 pack-year smoking history. Negative for alcohol or drug use. FAMILY HISTORY: Brother and father with lung cancer. One brother with prostate cancer and sister with breast cancer with metastases. HOME MEDICATIONS: 1. DuoNeb p.r.n. 2. Singulair at bedtime. 3. Vitamin D3 weekly. 4. Ventolin as needed. 5. MiraLAX daily. 6. Aspirin 81 mg daily. 7. Vitamin E daily. 8. Multivitamin daily. 9. Lovastatin 40 mg q.p.m. 10. Cozaar 25 mg daily. 11. Imdur 60 mg daily. 12. Furosemide 20 mg daily as needed. 13. Zyrtec 10 mg daily. 14. Coreg 6.25 mg p.o. b.i.d. PHYSICAL EXAMINATION: VITAL SIGNS: Most recent vital signs; temperature 97.8, pulse 68, blood pressure 118/57, respirations 18, and oxygen is 94% on room air. GENERAL: The patient is alert and oriented. Speech is clear. Affect is appropriate. He is in no apparent distress. NECK: Supple without jugular venous distention. LUNGS: Clear to auscultation bilaterally. HEART: Rate is irregularly irregular. PMI is nondisplaced. ABDOMEN: Soft and nontender without palpable masses. EXTREMITIES: Warm and dry to touch without clubbing, cyanosis, or edema. NEUROLOGIC: Grossly intact and nonfocal. Gait was not assessed. DATABASE: Hematology is reviewed. WBC 12.0, hemoglobin 12.9, and platelet count is 244. Chemistry: Potassium 4.0, creatinine 0.86, and magnesium 2.1. Telemetry and EKG show atrial flutter with controlled ventricular rate suggestive of cavotricuspid isthmus dependent/typical atrial flutter. IMPRESSION: 1. Typical atrial flutter. 2. Coronary artery disease with chronic angina, increased troponin secondary to demand ischemia. 3. Moderate to severe aortic stenosis. 4. Possible congestive heart failure. 5. Chronic obstructive pulmonary disease. Mr. Shell is a pleasant gentleman, who presented to the emergency room complaining of heart racing, palpitations, and positive dyspnea on exertion for 2 days. He was found to be tachycardic and in atrial flutter prompting EP consultation. It appears by telemetry and EKG reviewed that this is likely cavotricuspid isthmus dependent in origin and thus we discussed ablation. PLAN AND RECOMMENDATIONS: At this point, my plan and recommendation is for HILARIO to rule out left atrial appendage clots or thrombus before proceeding with right atrial flutter ablation. Pending ablation, he will likely require 30 days of oral anticoagulation and follow up with our clinic. We discussed risks, benefits, and alternatives. Alternatives being rate control versus antiarrhythmic therapy and cardioversion alone. The patient voices understanding and wishes to proceed with an ablation at this time and understands that if thrombosis found in the left atrium on HILARIO, then ablation will be held while anticoagulation is initiated for thrombus treatment. Thank you for allowing me to participate in the care of this patient. Dictated by Judith Hernandez PA-C, for Dr. Hollis to sign. Job ID: [id number]
[2018-10-10 12:06] VITALS: BP 126/60
--- NOTE | 2018-10-10 13:24 | DIS ---
DATE OF ADMISSION: 10/07/2018 DATE OF DISCHARGE: 10/10/2018 DISCHARGE DISPOSITION: Home. FOLLOWUP: 1. Follow up with Dr. Theo Cisneros in 1 week. 2. Follow up with Cardiology, Dr. Corona, in 3 to 4 weeks. 3. Follow up with Electrophysiology, Dr. Hollis, as scheduled. ALLERGIES: THE PATIENT IS ALLERGIC TO CYPROHEPTADINE. HISTORY: The patient was seen and examined on the day of discharge. Denies any new complaints. No chest pain, shortness of breath, or palpitations reported. DISCHARGE MEDICATIONS: Eliquis 5 mg b.i.d. All other home medications were left unchanged. BRIEF HOSPITAL COURSE: The patient is a 73-year-old male with coronary artery disease, status post CABG and COPD, presented to the emergency room with palpitations. His workup was consistent with atrial flutter/fibrillation with rapid ventricular response. He was started on 1 mg/kg of Lovenox. He was evaluated by Cardiology, Dr. Hancock. He was started on amiodarone drip. He was closely monitored in the intensive care unit. Yesterday, he underwent an electrophysiology study and radiofrequency ablation of the cavo-tricuspid isthmus. Postprocedure, he was monitored overnight. He has been cleared by Electrophysiology and Cardiology for discharge. He has been started on anticoagulation. He understands the risk associated with anticoagulation. FINAL DIAGNOSES: 1. Atrial flutter/fibrillation with rapid ventricular response, requiring amiodarone drip. 2. Elevated troponin secondary to type 2 myocardial infarction/demand ischemia. 3. Coronary artery disease, status post coronary artery bypass grafting. 4. Chronic obstructive pulmonary disease. 5. Dyslipidemia. 6. Chronic anemia. 7. Gastroesophageal reflux disease. 8. Chronic systolic and diastolic heart failure, compensated. 9. Obesity with a BMI of 33.5. 10. Chronic kidney disease, stage 2. PLAN: Plan of care was discussed with the patient and the family at the bedside. They stated understanding. SIGNIFICANT LABORATORY DATA: 1. Maximum troponin 3.19 with CK-MB 9.8. 2. Hemoglobin 12.9. 3. Fasting lipid showed LDL 66, cholesterol 122, triglyceride 135, and HDL of 29. Job ID: [id number]
--- NOTE | 2018-10-10 17:54 | PDOC.CTH ---
Cardiology Progress Note - Subjective He is doing well. He had his ablation and remains in sinus. - Objective Vital Signs Temp Pulse Resp BP Pulse Ox 10/10/18 12:03 75 18 126/60 93 L 10/10/18 10:47 75 16 90 L 10/10/18 07:30 93 L 10/10/18 07:15 98.5 F 75 18 133/63 93 L 10/10/18 06:58 93 L 10/10/18 06:55 76 16 93 L Weight 247 lb 5.738 oz 10/09/18 10/10/18 10/11/18 06:59 06:59 06:59 Intake Total 805.7 483.6 Output Total 1650 903 Balance -844.3 -419.4 - Physical Examination General/Neuro: alert & oriented x3, NAD Neck: no JVD present Lungs: CTA, unlabored respirations Heart: RRR Abdomen: NT/ND Extremities: + edema B (1+) - Telemetry Telemetry Rhythm: NSR - Labs Result Diagrams: 10/09/18 04:39 10/09/18 04:39 Troponin/CKMB CK-MB (CK-2) 9.8 ng/mL (0-6.6) H* 10/07/18 13:41 Troponin I 2.945 ng/mL (< 0.028) H* 10/07/18 20:29 - Assessment/Plan 1. Type 2 ME, demand ischemia 2. Typical atrial flutter. 3. CAD s/p CABG. PLAN: - S/P Ablation. Remains in sinus. - May discharge home today. - Follow up in the office in 1 month. - Will need further risk stratification as outpatient.
== END 2018-10-10 13:05 | disposition home or self-care (01) | DRG 273 ==
LOC: ERS 13:04 → CCU 15:57 → 2NO 10-08 16:12
PROVIDERS: ADMIT Internal Medicine; ATTEND Internal Medicine
PROC: 02583ZZ Destruction of Conduction Mechanism, Percutaneous Approach (ICD-10-PCS; principal; 2018-10-09)
PROC: 4A023FZ Measurement of Cardiac Rhythm, Percutaneous Approach (ICD-10-PCS; 2018-10-09)
PROC: 4A0234Z Measurement of Cardiac Electrical Activity, Percutaneous Approach (ICD-10-PCS; 2018-10-09)
PROC: B24BZZ4 Ultrasonography of Heart with Aorta, Transesophageal (ICD-10-PCS; 2018-10-09)
DX: I48.3 Typical atrial flutter (principal); I21.A1 Myocardial infarction type 2; I50.40 Unspecified combined systolic (congestive) and diastolic (congestive) heart failure; I25.10 Atherosclerotic heart disease of native coronary artery without angina pectoris; J44.9 Chronic obstructive pulmonary disease, unspecified; K21.9 Gastro-esophageal reflux disease without esophagitis; E78.5 Hyperlipidemia, unspecified; I42.9 Cardiomyopathy, unspecified; I35.0 Nonrheumatic aortic (valve) stenosis; D64.9 Anemia, unspecified; N18.2 Chronic kidney disease, stage 2 (mild); E66.9 Obesity, unspecified; Z95.1 Presence of aortocoronary bypass graft; Z87.891 Personal history of nicotine dependence; Z88.8 Allergy status to other drugs, medicaments and biological substances; Z79.82 Long term (current) use of aspirin; Z68.33 Body mass index [BMI] 33.0-33.9, adult
CPT/HCPCS: 36415; 76942; 80048; 80061; 82553; 83735; 84484; 85025; 93005; 93010; 93312; 93613; 93621; 93623; 93653; 93798; 94640; C1732; C1769; J0282; J1160; J1265; J1644; J1650; J2250; J2704; J7070; J7620; J7626; S0028